=== PATIENT | female | born 1960 | race Caucasian/White ===

== ENCOUNTER 2021-10-16 10:58 | Emergency (ER) | payer MEDICAID ==
[~2021-10-16 10:58] MED LIST: ASPIRIN CHEWABL81 MG PO; NITROSTAT0.4 MG SL
== END 2021-10-16 13:25 | disposition home or self-care (01) ==
LOC: ER1 10:58
DX: S82.831A Other fracture of upper and lower end of right fibula, initial encounter for closed fracture (principal); J44.9 Chronic obstructive pulmonary disease, unspecified; F17.200 Nicotine dependence, unspecified, uncomplicated; W18.40XA Slipping, tripping and stumbling without falling, unspecified, initial encounter; Y92.009 Unspecified place in unspecified non-institutional (private) residence as the place of occurrence of the external cause
CPT/HCPCS: 73590; 73610; 73630; 99283